=== PATIENT | female | born 1985 | race Caucasian/White ===

== ENCOUNTER 2023-05-23 10:07 | Outpatient (CLI) | payer OTHER | END 2023-05-23 10:42 | disposition home or self-care (01) | LOC: MRI 10:07 | PROVIDERS: ATTEND Orthopaedic Surgery | DX: M25.561 Pain in right knee (principal); M25.562 Pain in left knee; S72.91XA Unspecified fracture of right femur, initial encounter for closed fracture; S83.200A Bucket-handle tear of unspecified meniscus, current injury, right knee, initial encounter; S83.201A Bucket-handle tear of unspecified meniscus, current injury, left knee, initial encounter | CPT/HCPCS: 73718 ==